=== PATIENT | male | born 1955 | race Caucasian/White ===

== ENCOUNTER 2017-01-25 12:31 | Emergency (ER) | payer OTHER ==
[2017-01-25 12:35] VITALS: BMI 30.7
--- NOTE | 2017-01-25 13:19 | PDOC ---
History of Present Illness - General History Source: Patient Exam Limitations: No Limitations <Mati Dockery - Last Filed: 01/25/17 14:28> - General History Source: Patient Exam Limitations: No Limitations - History of Present Illness Initial Comments: 01/25/17 13:37 The patient is a 61 year old male, with a significant past medical history of HLD, who presents to the emergency department with tingling and numbness to both hands. Patient states the tingling occurred 30 minutes prior to arrival when he was washing his hands with cold water. Patient reports sudden onset of hand numbness and tingling which began in fingertips and spread to his entire palm. Patient states his hand suddenly turned white and felt cold to touch. Patient states he has never experienced this before and reports to the ED for further evaluation. He denies chest pain, headache or dizziness. He denies fever, chills, abdominal pain, nausea, vomit, diarrhea or constipation. He denies dysuria, frequency, urgency or hematuria. Allergies: NKA Past surgical history: None Social history: Current some day smoker PCP: - <Charito Rehman - Last Filed: 01/25/17 16:30> - General Chief Complaint: Pain Stated Complaint: LT SIDE NUMBNESS Time Seen by Provider: 01/25/17 12:46 Past History - Past Medical History Hypercholesterolemia: Yes - Psycho/Social/Smoking Cessation Hx Anxiety: No Suicidal Ideation: No Smoking History: Current some day smoker Number of Cigarettes Smoked Daily: 0 Cigars Per Day: 1 Information on smoking cessation initiated: No Hx Alcohol Use: No Drug/Substance Use Hx: No Substance Use Type: None <Mati Dockery - Last Filed: 01/25/17 14:28> <Charito Rehman - Last Filed: 01/25/17 16:30> - Past Medical History Allergies/Adverse Reactions: Allergies Allergy/AdvReac Type Severity Reaction Status Date / Time No Known Allergies Allergy Verified 01/25/17 12:35 Home Medications: Ambulatory Orders NK [No Known Home Medication] 01/25/17 Review of Systems - Review of Systems Able to Perform ROS?: Yes Comments:: 01/25/17 13:37 GENERAL/CONSTITUTIONAL: No fever or chills. No weakness. HEAD, EYES, EARS, NOSE AND THROAT: No change in vision. No ear pain or discharge. No sore throat. CARDIOVASCULAR: No chest pain or shortness of breath. RESPIRATORY: No cough, wheezing, or hemoptysis. GASTROINTESTINAL: No nausea, vomiting, diarrhea or constipation. GENITOURINARY: No dysuria, frequency, or change in urination. MUSCULOSKELETAL: No joint or muscle swelling or pain. No neck or back pain. SKIN: No rash NEUROLOGIC: +Hand numbness and tingling. No headache, vertigo, loss of consciousness, or change in strength/sensation. ENDOCRINE: No increased thirst. No abnormal weight change. HEMATOLOGIC/LYMPHATIC: No anemia, easy bleeding, or history of blood clots. ALLERGIC/IMMUNOLOGIC: No hives or skin allergy. <Charito Rehman - Last Filed: 01/25/17 16:30> *Physical Exam - Vital Signs Last Vital Signs Temp Pulse Resp BP Pulse Ox 97.7 F 56 L 20 149/72 95 01/25/17 12:32 01/25/17 12:32 01/25/17 12:32 01/25/17 12:32 01/25/17 12:32 <Mati Dockery - Last Filed: 01/25/17 14:28> - Vital Signs Last Vital Signs Temp Pulse Resp BP Pulse Ox 97.7 F 56 L 20 149/72 95 01/25/17 12:32 01/25/17 12:32 01/25/17 12:32 01/25/17 12:32 01/25/17 12:32 - Physical Exam Comments: 01/25/17 13:38 GENERAL: Awake, alert, and fully oriented, in no acute distress HEAD: No signs of trauma EYES: PERRLA, EOMI, sclera anicteric, conjunctiva clear ENT: Auricles normal inspection, hearing grossly normal, nares patent, oropharynx clear without exudates. Moist mucosa NECK: Normal ROM, supple, no lymphadenopathy, JVD, or masses LUNGS: Breath sounds equal, clear to auscultation bilaterally. No wheezes, and no crackles HEART: Regular rate and rhythm, normal S1 and S2, no murmurs, rubs or gallops ABDOMEN: Soft, nontender, normoactive bowel sounds. No guarding, no rebound. No masses EXTREMITIES: +Bilateral upper extremity medial pulses intact. Sensation intact throughout. Less than 2 seconds capillary refill. Normal range of motion, no edema. No clubbing or cyanosis. No cords, erythema, or tenderness NEUROLOGICAL:Cranial nerves II through XI intact. 5/5 strength in upper and lower extremities. Normal speech normal gait. SKIN: Warm, Dry, normal turgor, no rashes or lesions noted. <Charito Rehman - Last Filed: 01/25/17 16:30> ED Treatment Course - LABORATORY CBC & Chemistry Diagram: 01/25/17 13:15 01/25/17 13:15 <Mati Dockery - Last Filed: 01/25/17 14:28> - LABORATORY CBC & Chemistry Diagram: 01/25/17 13:15 01/25/17 13:15 <Charito Rehman - Last Filed: 01/25/17 16:30> Medical Decision Making - Medical Decision Making 01/25/17 13:14 A portion of this note was documented by scribe services under my direction. I have reviewed the details of the note, within reason, and agree with the documentation with the following case summary and management plan written by me. Patient treated in the ED. Nursing notes are reviewed and incorporated into the medical decision-making. Vital signs reviewed. Peripheral IV access obtained by the nurse, laboratory studies are drawn and sent, reviewed and interpreted by myself. Vital Signs Temp Pulse Resp BP Pulse Ox 97.7 F 56 L 20 149/72 95 01/25/17 12:32 01/25/17 12:32 01/25/17 12:32 01/25/17 12:32 01/25/17 12:32 61 year old male c/ hx of HLD p/w bluishish/whitish discoloration of both hands/ fingers at ~11:50 am. The patient was in his usual state of health. Reported that he went to wash his hands in cold water when he noticed some tingling and blushish/whitish discoloration of all left digit extending up to dorsum of left hand and 2nd and 4th digit of right hand. Lasted for several minutes and return back to baseline. pt reports 1st time episode. Denies any fevers, weight losses , difficulty swallowing, pain, or other neurological deficits. The history is concerning for potentially Raynaud's phenomenon (though atypical) . Will draw cbc, cmp, and if workup unremarkable, will refer to PMD for further evaluation for potential Raynaud's. 01/25/17 14:26 CBC, BMP 01/25/17 13:15 01/25/17 13:15 CMP Sodium 139 mmol/L (136-145) 01/25/17 13:15 Potassium 4.1 mmol/L (3.5-5.1) 01/25/17 13:15 Chloride 102 mmol/L (98-107) 01/25/17 13:15 Carbon Dioxide 31 mmol/L (21-32) 01/25/17 13:15 Anion Gap 6 (8-16) L 01/25/17 13:15 BUN 16 mg/dL (7-18) 01/25/17 13:15 Creatinine 1.1 mg/dL (0.7-1.3) 01/25/17 13:15 Creat Clearance w eGFR > 60 (>60) 01/25/17 13:15 Random Glucose 135 mg/dL (74-106) H 01/25/17 13:15 Calcium 8.8 mg/dL (8.5-10.1) 01/25/17 13:15 Magnesium 2.5 mg/dL (1.8-2.4) H 01/25/17 13:15 Total Bilirubin 1.0 mg/dL (0.2-1.0) 01/25/17 13:15 AST 22 U/L (15-37) 01/25/17 13:15 ALT 23 U/L (12-78) 01/25/17 13:15 Alkaline Phosphatase 82 U/L (45-117) 01/25/17 13:15 Total Protein 7.2 g/dl (6.4-8.2) 01/25/17 13:15 Albumin 3.9 g/dl (3.4-5.0) 01/25/17 13:15 Labs reviewed. Will d/c the patient to the pt's PMD I discussed the physical exam findings, ancillary test results and final diagnoses with the patient. I answered all of the patient's questions. The patient was satisfied with the care received and felt comfortable with the discharge plan and treatment plan. The patient will call their primary care physician within 24 hours to arrange follow-up and will return to the Emergency Department with any new, persistant or worsening symptoms. <Mati Dockery - Last Filed: 01/25/17 14:28> *DC/Admit/Observation/Transfer - Discharge Dispostion Admit: No <Mati Dockery - Last Filed: 01/25/17 14:28> - Attestations Scribe Attestion: 01/25/17 13:38 Documentation prepared by Charito Rehman, acting as medical assistant for Mati Dockery MD <Charito Rehman - Last Filed: 01/25/17 16:30> Diagnosis at time of Disposition: Discoloration of skin of finger - Discharge Dispostion Disposition: HOME Condition at time of disposition: Good - Patient Instructions Printed Discharge Instructions: Raynauds Disease and Phenomenon Additional Instructions: Please bring your workup to your doctor. While I am not technically diagnosing you with this disease process, it is very important that you follow up with your doctor for this potential condition. Call to schedule an appointment.
[2017-01-25 13:25] LABS: BASOPHIL 0.5 % (0-2.0); MCH 30.7 pg (25.7-33.7); MCHC 33.5 g/dl (32.0-35.9); MEAN CELL VOLUME 91.7 fl (80-96); NEUTROPHILS 64.7 % (42.8-82.8); PLATELET COUNT 212 K/MM3 (134-434); WHITE BLOOD COUNT 7.4 K/mm3 (4.0-10.0)
[2017-01-25 13:50] LABS: ALBUMIN 3.9 g/dl (3.4-5.0); ANION GAP 6 (8-16); CALCIUM 8.8 mg/dL (8.5-10.1); CO2 31 mmol/L (21-32); GLUCOSE,RANDOM 135 mg/dL (74-106); MAGNESIUM 2.5 mg/dL (1.8-2.4)
[2017-01-25 13:55] LABS: CREATININE 1.1 mg/dL (0.7-1.3); SGOT/AST 22 U/L (15-37); SGPT/ALT 23 U/L (12-78); TOT PROT 7.2 g/dl (6.4-8.2)
[2017-01-25 13:56] LABS: ALK PHOS 82 U/L (45-117)
[2017-01-25 14:43] VITALS: BP 138/78; PULSE 88; TEMP 98.7
== END 2017-01-25 14:43 | disposition home or self-care (01) ==
LOC: JER 12:31
DX: L98.8 Other specified disorders of the skin and subcutaneous tissue (principal); I73.00 Raynaud's syndrome without gangrene
CPT/HCPCS: 36415; 80053; 83735; 85025; 99282-25